=== PATIENT | female | born 1955 | race African-American/Black ===

== ENCOUNTER 2016-11-16 20:08 | Emergency (ER) | payer SELFPAY ==
[~2016-11-16] VITALS: Ht 160 cm; Wt 86.0 kg
[2016-11-16] MEDS ORDERED: METOPROLOL 1 MG/ML, 5ML ONE ×2 (21:08→21:57)
[2016-11-16] MEDS: METOPROLOL 1 MG/ML, 5ML IVPush PRN ×2 (21:13→22:02)
[2016-11-16 21:31] LABS: BLOOD UREA NITROGEN 19 mg/dL (7-18)
[2016-11-16 21:39] LABS: IS PT STATUS REG ER OR PRE ER? YES
[2016-11-16 22:49] VITALS: BP 168/96
== END 2016-11-16 22:51 | disposition home or self-care (01) ==
LOC: ED 22:45
DX: I10 Essential (primary) hypertension (principal)
CPT/HCPCS: 36415; 71010; 80048; 82040; 83880; 84484; 85025; 93005; 96374; 96376

== ENCOUNTER 2018-09-16 14:28 | Emergency (ER) | payer MEDICAID ==
[~2018-09-16] VITALS: Ht 160 cm; Wt 79.3 kg
[2018-09-16 14:39] VITALS: BP 174/98
== END 2018-09-16 16:48 | disposition home or self-care (01) ==
LOC: ED 16:15
DX: B35.3 Tinea pedis (principal); L01.01 Non-bullous impetigo; R05 Cough; I10 Essential (primary) hypertension; F17.200 Nicotine dependence, unspecified, uncomplicated; R09.81 Nasal congestion
CPT/HCPCS: 71046; 99283